=== PATIENT | male | born 1965 | race Caucasian/White ===

== ENCOUNTER 2016-12-11 20:33 | Emergency (ER) | payer OTHER ==
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
[2016-12-11 20:45] VITALS: BP 103/71; PULSE 84; RESP 20; TEMP 98.8; O2SAT 95
[2016-12-11] MEDS ORDERED: chlordiazePOXIDE 25 MG CAP PO ONE (20:45)
[2016-12-11] MEDS ORDERED: SODIUM CHLOR 0.9% 1000 ML INJ 1,000 ML IV ONE (20:45)
[2016-12-11] MEDS ORDERED: THIAMINE INJ 100 MG in SODIUM CHLORIDE 0.9% INJ 100 ML IV ONE (20:45)
[2016-12-11 21:57] LABS: AUTOMATED NEUTROPHIL # 5.8 TH/MM3 (1.8-7.7); BASOPHIL # 0.1 TH/MM3 (0-0.2); BASOPHIL % 0.9 % (0.0-2.0); EOSINOPHIL # 0.1 TH/MM3 (0-0.4); EOSINOPHIL % 0.8 % (0.0-4.0); HEMATOCRIT 41.4 % (39.0-51.0); HEMO FLAGS DIFF FINAL; LYMPH % 27.2 % (9.0-44.0); LYMPHOCYTE # 2.6 TH/MM3 (1.0-4.8); MEAN CELL VOLUME 90.8 FL (80.0-100.0); MEAN CORPUSCULAR HEMOGLOBIN 30.8 PG (27.0-34.0); MONO % 11.2 % (0.0-8.0); NEUT % 59.9 % (16.0-70.0); PLATELET COUNT 255 TH/MM3 (150-450); RED BLOOD COUNT 4.56 MIL/MM3 (4.50-5.90); RED CELL DISTRIBUTION WIDTH 14.6 % (11.6-17.2); WHITE BLOOD COUNT 9.6 TH/MM3 (4.0-11.0)
[2016-12-11 22:23] LABS: AMPHETAMINE, URINE NEG (NEG); BARBITURATES, URINE NEG (NEG); COCAINE, URINE NEG (NEG)
[2016-12-11 22:26] LABS: ANION GAP 11 MEQ/L (5-15)
[2016-12-11 22:29] LABS: ALKALINE PHOSPHATASE 93 U/L (45-117); ALT (GPT) 45 U/L (12-78); AST (GOT) 32 U/L (15-37); BICARBONATE 27.3 MEQ/L (21.0-32.0); BLOOD UREA NITROGEN 4 MG/DL (7-18); CHLORIDE 101 MEQ/L (98-107); GLOMERULAR FILTRATION RATE 109 ML/MIN (>89); POTASSIUM 3.6 MEQ/L (3.5-5.1); SODIUM (NA) 139 MEQ/L (136-145); TOTAL BILIRUBIN ADULT 0.1 MG/DL (0.2-1.0)
[2016-12-12 06:05] VITALS: BP 115/88
== END 2016-12-12 06:13 | disposition home or self-care (01) ==
LOC: NEPE 20:33
DX: F10.129 Alcohol abuse with intoxication, unspecified (principal); Y90.6 Blood alcohol level of 120-199 mg/100 ml; S60.511A Abrasion of right hand, initial encounter; Y04.0XXA Assault by unarmed brawl or fight, initial encounter
CPT/HCPCS: 80053; 80307; 85025; 96365; 99284; J3411; J7030

== ENCOUNTER 2016-12-16 20:16 | Inpatient (IN) | payer SELFPAY ==
[~2016-12-16] VITALS: Ht 177.8 cm; Wt 66.5 kg
[2016-12-16] MEDS ORDERED: SODIUM CHLOR 0.9% 1000 ML INJ 1,000 ML IV SCH (20:24)
[2016-12-16] MEDS ORDERED: SODIUM CHLORIDE 0.9% FLUSH 10 ML FLUSH IVF PRN (20:30)
--- NOTE | 2016-12-16 20:33 | PD ---
HPI Chief Complaint: altered mental status/[place] act. Time Seen by Provider: 20:27 Travel History International Travel<30 days: No Contact w/Intl Traveler<30days: No Traveled to known affect area: No History of Present Illness HPI Clarence Dawson brought in by EMS with altered mental status and obvious intoxication [place] act. Patient has been unresponsive, with O2 sats in the 80s without O2 supplementation. Patient is visibly intoxicated without obvious signs of trauma. He has audible rhonchi with inspiration and expiration. Patient simply mumbles but is arousable but unintelligible. PFSH Past Medical History Medical History: Unable to Obtain Social History Alcohol Use: Yes Tobacco Use: Yes Substance Use: Yes Allergies-Medications (Allergen,Severity, Reaction): Coded Allergies: Tetanus Toxoid (Verified Allergy, Severe, Anaphylaxis, 12/17/16) Reported Meds & Prescriptions Reported Meds & Active Scripts Active Active Prescriptions or Reported Medications Unobtainable Review of Systems ROS Limitations: Altered Mental Status Except as stated in HPI: all other systems reviewed are Neg General / Constitutional: No: Fever Eyes: No: Visual changes HENT: No: Headaches Cardiovascular: No: Chest Pain or Discomfort Respiratory: No: Shortness of Breath Gastrointestinal: No: Abdominal Pain Genitourinary: No: Dysuria Musculoskeletal: No: Pain Skin: No Rash Neurologic: No: Weakness Psychiatric: No: Depression Endocrine: No: Polydipsia Hematologic/Lymphatic: No: Easy Bruising Physical Exam Exam Limitations: Altered Mental Status Narrative GENERAL: Patient appears obtunded and intoxicated. Respiratory rate is proximal to respiratory. SKIN: Warm and dry. Normal color. Poor turgor with tenting present. HEAD: Normocephalic. No obvious signs of trauma. EYES: Pupils equal and round. No scleral icterus. No injection or drainage. ENT: No nasal bleeding or discharge. Mucous membranes pink and moist. Pharynx is clear. Airway is patent. There is vomitus noted in the patient's ramirez and mustache. NECK: Trachea midline. No JVD. No bony tenderness or step-off. Supple without obvious tenderness. CARDIOVASCULAR: Regular rate and rhythm. No murmurs gallops or rubs. RESPIRATORY: No accessory muscle use. Diffuse wheezes and rhonchi throughout to auscultation. Breath sounds equal bilaterally. GASTROINTESTINAL: Abdomen soft, non-tender, nondistended. Hepatic and splenic margins not palpable. MUSCULOSKELETAL: Extremities without clubbing, cyanosis, or edema. No obvious deformities. NEUROLOGICAL: Awake and alert. No obvious cranial nerve deficits. Motor grossly within normal limits. Patient only mumbles. PSYCHIATRIC: Unable to assess. Data Data Last Documented VS Vital Signs Date Time Temp Pulse Resp B/P Pulse Ox O2 Delivery O2 Flow Rate FiO2 12/16/16 21:35 82 18 118/75 98 Aerosol Mask 12/16/16 20:59 4 12/16/16 20:55 97.7 Orders Electrocardiogram (12/16/16 20:24) Ammonia (12/16/16 20:24) Complete Blood Count With Diff (12/16/16 20:24) Comprehensive Metabolic Panel (12/16/16 20:24) Creatine Kinase (Cpk) (12/16/16 20:24) Prothrombin Time / Inr (Pt) (12/16/16 20:24) Act Partial Throm Time (Ptt) (12/16/16 20:24) Lactic Acid Sepsis Protocol (12/16/16 20:24) Urinalysis - C+S If Indicated (12/16/16 20:24) Blood Culture (12/16/16 20:24) Chest, Single Ap (12/16/16 20:24) Blood Glucose (12/16/16 20:24) Ecg Monitoring (12/16/16 20:24) Iv Access Insert/Monitor (12/16/16 20:24) Cath For Specimen (12/16/16 20:24) Oximetry (12/16/16 20:24) Sodium Chloride 0.9% Flush (Ns Flush) (12/16/16 20:30) Sodium Chlor 0.9% 1000 Ml Inj (Ns 1000 M (12/16/16 20:24) Drug Screen, Random Urine (12/16/16 20:24) Alcohol (Ethanol) (12/16/16 20:24) Albuterol-Ipratropium Neb (Duoneb Neb) (12/16/16 21:00) Vancomycin Inj (Vancomycin Inj) (12/16/16 21:16) Piperacil-Tazo 4.5 Gm Premix (Zosyn 4.5 (12/16/16 21:16) Sodium Chlor 0.9% 1000 Ml Inj (Ns 1000 M (12/16/16 21:16) Sodium Chlor 0.9% 1000 Ml Inj (Ns 1000 M (12/16/16 21:16) Ct Brain W/O Iv Contrast(Rout) (12/16/16 22:15) Admit Order (Ed Use Only) (12/16/16 22:26) Labs Laboratory Tests Test 12/16/16 12/16/16 20:30 20:50 White Blood Count 9.2 TH/MM3 Red Blood Count 4.75 MIL/MM3 Hemoglobin 15.2 GM/DL Hematocrit 43.3 % Mean Corpuscular Volume 91.2 FL Mean Corpuscular Hemoglobin 32.1 PG Mean Corpuscular Hemoglobin 35.2 % Concent Red Cell Distribution Width 15.2 % Platelet Count 297 TH/MM3 Mean Platelet Volume 7.1 FL Neutrophils (%) (Auto) 63.5 % Lymphocytes (%) (Auto) 26.7 % Monocytes (%) (Auto) 7.7 % Eosinophils (%) (Auto) 0.7 % Basophils (%) (Auto) 1.4 % Neutrophils # (Auto) 5.9 TH/MM3 Lymphocytes # (Auto) 2.5 TH/MM3 Monocytes # (Auto) 0.7 TH/MM3 Eosinophils # (Auto) 0.1 TH/MM3 Basophils # (Auto) 0.1 TH/MM3 CBC Comment DIFF FINAL Differential Comment Prothrombin Time 10.3 SEC Prothromb Time International 0.9 RATIO Ratio Activated Partial 25.0 SEC Thromboplast Time Sodium Level 142 MEQ/L Potassium Level 3.4 MEQ/L Chloride Level 107 MEQ/L Carbon Dioxide Level 23.4 MEQ/L Anion Gap 12 MEQ/L Blood Urea Nitrogen 5 MG/DL Creatinine 1.03 MG/DL Estimat Glomerular Filtration 62 ML/MIN Rate Random Glucose 144 MG/DL Lactic Acid Level 5.3 mmol/L Calcium Level 8.1 MG/DL Total Bilirubin 0.1 MG/DL Aspartate Amino Transf 51 U/L (AST/SGOT) Alanine Aminotransferase 54 U/L (ALT/SGPT) Alkaline Phosphatase 100 U/L Ammonia 37 MCMOL/L Total Creatine Kinase 116 U/L Total Protein 6.8 GM/DL Albumin 3.0 GM/DL Ethyl Alcohol Level 540 MG/DL Urine Color LIGHT-YELLOW Urine Turbidity CLEAR Urine pH 5.0 Urine Specific [place] 1.003 Urine Protein NEG mg/dL Urine Glucose (UA) NEG mg/dL Urine Ketones NEG mg/dL Urine Occult Blood NEG Urine Nitrite NEG Urine Bilirubin NEG Urine Urobilinogen LESS THAN 2.0 MG/DL Urine Leukocyte Esterase NEG Urine RBC LESS THAN 1 /hpf Urine WBC LESS THAN 1 /hpf Urine Squamous Epithelial 1 /hpf Cells Microscopic Urinalysis Comment CATH-CULT NOT IND Urine Opiates Screen NEG Urine Barbiturates Screen NEG Urine Amphetamines Screen NEG Urine Benzodiazepines Screen NEG Urine Cocaine Screen NEG Urine Cannabinoids Screen NEG MDM Medical Decision Making Medical Screen Exam Complete: Yes Emergency Medical Condition: Yes Differential Diagnosis [place]man act. Sepsis. Pneumonia. Hypoxia. Intoxication. Narrative Course Patient is medically stable with 5 L nasal cannula oxygen. IV access is obtained patient's labs are obtained including CBC, CMP, lactic acid, blood cultures 2, urinalysis, urine drug screen, serum ammonia level, and serum EtOH. Patient is given 1 L normal saline bolus 3. Chest x-ray and CT scan of the head is ordered. EKG shows atrial flutter/tachycardia without significant ST-T changes. This is reviewed with Dr. Lucia. Chest x-ray shows no acute process per radiologist. Lactic acid is critically elevated at 5.3. Patient is given 4.5 g Zosyn IV as well as 1000 mg vancomycin IV. CMP shows potassium 3.4, BUN 5, and a 1.03, calcium 8.1, total bilirubin is 0.1 , ammonia level is 37, albumin is 3.0. Serum alcohol level is 540 at 2030 hrs. Coagulation studies are normal. Patient is discussed with Dr. Lucia who also sees the patient. CT scan Patient is felt to need admission due to his lactic acid level. Call was placed to the hospitalist and patient was discussed and admission agreed upon. Diagnosis Primary Impression: Elevated lactic acid level Additional Impressions: Elevated ETOH level Qualified Code: Y90.8 - Blood alcohol level of 240 mg/100 ml or more Hypoxia Aspiration into respiratory tract Qualified Code: T17.908A - Aspiration into respiratory tract, initial encounter Admitting Information Admitting Physician Requests: Admit Scripts Unable to Obtain Active Prescriptions or Reported Meds Condition: Brenden Worley Dec 16, 2016 20:33
[2016-12-16 20:45] LABS: AUTOMATED NEUTROPHIL # 5.9 TH/MM3 (1.8-7.7); BASOPHIL # 0.1 TH/MM3 (0-0.2); BASOPHIL % 1.4 % (0.0-2.0); EOSINOPHIL # 0.1 TH/MM3 (0-0.4); EOSINOPHIL % 0.7 % (0.0-4.0); HEMATOCRIT 43.3 % (39.0-51.0); HEMO FLAGS DIFF FINAL; LYMPH % 26.7 % (9.0-44.0); LYMPHOCYTE # 2.5 TH/MM3 (1.0-4.8); MEAN CELL VOLUME 91.2 FL (80.0-100.0); MEAN CORPUSCULAR HEMOGLOBIN 32.1 PG (27.0-34.0); MEAN CORPUSCULAR HGB CONC 35.2 % (32.0-36.0); MONO % 7.7 % (0.0-8.0); NEUT % 63.5 % (16.0-70.0); PLATELET COUNT 297 TH/MM3 (150-450); RED BLOOD COUNT 4.75 MIL/MM3 (4.50-5.90); RED CELL DISTRIBUTION WIDTH 15.2 % (11.6-17.2); WHITE BLOOD COUNT 9.2 TH/MM3 (4.0-11.0)
[2016-12-16 20:55] VITALS: BP 118/75; PULSE 110; RESP 16; TEMP 97.7; O2SAT 88
[2016-12-16 20:59] LABS: INTERNATIONAL NORMALIZED RATIO 0.9 RATIO; PROTHROMBIN TIME - PATIENT 10.3 SEC (9.8-11.6)
[2016-12-16 21:05] LABS: ANION GAP 12 MEQ/L (5-15); AST (GOT) 51 U/L (15-37); BICARBONATE 23.4 MEQ/L (21.0-32.0); BLOOD UREA NITROGEN 5 MG/DL (7-18); CHLORIDE 107 MEQ/L (98-107); GLOMERULAR FILTRATION RATE 62 ML/MIN (>89); POTASSIUM 3.4 MEQ/L (3.5-5.1); SODIUM (NA) 142 MEQ/L (136-145)
--- NOTE | 2016-12-16 21:12 | RADRPT ---
EXAM DATE/TIME: 12/16/2016 20:27 [facility] COMPARISON: No previous studies available for comparison. INDICATIONS : Cough. MEDICAL HISTORY : None. SURGICAL HISTORY : None. ENCOUNTER: Initial ACUITY: 1 day PAIN SCORE: 0/10 LOCATION: Bilateral chest FINDINGS: A single view of the chest demonstrates the lungs to be symmetrically aerated without evidence of mas s, infiltrate or effusion. The cardiomediastinal contours are unremarkable. Osseous structures are intact. CONCLUSION: No acute disease. Deniz Pearson MD on December 16, 2016 at 21:09 Board Certified Radiologist. This report was verified electronically.
[2016-12-16 21:13] LABS: ALKALINE PHOSPHATASE 100 U/L (45-117)
[2016-12-16 21:14] LABS: ALT (GPT) 54 U/L (12-78); CREATINE KINASE 116 U/L (39-308); TOTAL BILIRUBIN ADULT 0.1 MG/DL (0.2-1.0)
[2016-12-16] MEDS ORDERED: SODIUM CHLOR 0.9% 1000 ML INJ 1,000 ML IV ONE (21:16)
[2016-12-16] MEDS ORDERED: SODIUM CHLOR 0.9% 1000 ML INJ 100 ML IV ONE (21:16)
[2016-12-16] MEDS ORDERED: PIPERACIL-TAZO 4.5 GM PREMIX 100 ML IV STA (21:16)
[2016-12-16] MEDS ORDERED: VANCOMYCIN INJ 1,000 MG in SODIUM CHLOR 0.9% 250 ML INJ 250 ML IV STA (21:16)
[2016-12-16 21:29] VITALS: O2SAT 92
[2016-12-16] MEDS: RESP: ALBUTEROL 2.5 MG/IPRATROPIUM 0.5 MG NEB (SCH) INH ×2 (21:29→21:30)
[2016-12-16 21:35] VITALS: BP 118/75; PULSE 82; RESP 18; O2SAT 98
--- NOTE | 2016-12-16 22:05 | PD ---
Data Data Last Documented VS Vital Signs Date Time Temp Pulse Resp B/P Pulse Ox O2 Delivery O2 Flow Rate FiO2 12/16/16 21:35 82 18 118/75 98 Aerosol Mask 12/16/16 20:59 4 12/16/16 20:55 97.7 Orders Electrocardiogram (12/16/16 20:24) Ammonia (12/16/16 20:24) Complete Blood Count With Diff (12/16/16 20:24) Comprehensive Metabolic Panel (12/16/16 20:24) Creatine Kinase (Cpk) (12/16/16 20:24) Prothrombin Time / Inr (Pt) (12/16/16 20:24) Act Partial Throm Time (Ptt) (12/16/16 20:24) Lactic Acid Sepsis Protocol (12/16/16 20:24) Urinalysis - C+S If Indicated (12/16/16 20:24) Blood Culture (12/16/16 20:24) Chest, Single Ap (12/16/16 20:24) Blood Glucose (12/16/16 20:24) Ecg Monitoring (12/16/16 20:24) Iv Access Insert/Monitor (12/16/16 20:24) Cath For Specimen (12/16/16 20:24) Oximetry (12/16/16 20:24) Sodium Chloride 0.9% Flush (Ns Flush) (12/16/16 20:30) Sodium Chlor 0.9% 1000 Ml Inj (Ns 1000 M (12/16/16 20:24) Drug Screen, Random Urine (12/16/16 20:24) Alcohol (Ethanol) (12/16/16 20:24) Albuterol-Ipratropium Neb (Duoneb Neb) (12/16/16 21:00) Vancomycin Inj (Vancomycin Inj) (12/16/16 21:16) Piperacil-Tazo 4.5 Gm Premix (Zosyn 4.5 (12/16/16 21:16) Sodium Chlor 0.9% 1000 Ml Inj (Ns 1000 M (12/16/16 21:16) Sodium Chlor 0.9% 1000 Ml Inj (Ns 1000 M (12/16/16 21:16) Labs Laboratory Tests Test 12/16/16 20:30 White Blood Count 9.2 TH/MM3 Red Blood Count 4.75 MIL/MM3 Hemoglobin 15.2 GM/DL Hematocrit 43.3 % Mean Corpuscular Volume 91.2 FL Mean Corpuscular Hemoglobin 32.1 PG Mean Corpuscular Hemoglobin 35.2 % Concent Red Cell Distribution Width 15.2 % Platelet Count 297 TH/MM3 Mean Platelet Volume 7.1 FL Neutrophils (%) (Auto) 63.5 % Lymphocytes (%) (Auto) 26.7 % Monocytes (%) (Auto) 7.7 % Eosinophils (%) (Auto) 0.7 % Basophils (%) (Auto) 1.4 % Neutrophils # (Auto) 5.9 TH/MM3 Lymphocytes # (Auto) 2.5 TH/MM3 Monocytes # (Auto) 0.7 TH/MM3 Eosinophils # (Auto) 0.1 TH/MM3 Basophils # (Auto) 0.1 TH/MM3 CBC Comment DIFF FINAL Differential Comment Prothrombin Time 10.3 SEC Prothromb Time International 0.9 RATIO Ratio Activated Partial 25.0 SEC Thromboplast Time Sodium Level 142 MEQ/L Potassium Level 3.4 MEQ/L Chloride Level 107 MEQ/L Carbon Dioxide Level 23.4 MEQ/L Anion Gap 12 MEQ/L Blood Urea Nitrogen 5 MG/DL Creatinine 1.03 MG/DL Estimat Glomerular Filtration 62 ML/MIN Rate Random Glucose 144 MG/DL Lactic Acid Level 5.3 mmol/L Calcium Level 8.1 MG/DL Total Bilirubin 0.1 MG/DL Aspartate Amino Transf 51 U/L (AST/SGOT) Alanine Aminotransferase 54 U/L (ALT/SGPT) Alkaline Phosphatase 100 U/L Ammonia 37 MCMOL/L Total Creatine Kinase 116 U/L Total Protein 6.8 GM/DL Albumin 3.0 GM/DL Ethyl Alcohol Level 540 MG/DL [facility] Medical Record Reviewed: Yes Supervised Visit with AYANA: Yes Narrative Course I, Dr. Lucia, have reviewed the advance practice practitioner's documentation and am in agreement, met with the patient face to face, made the diagnosis, and the medical decision making was done by me. The patient was initially seen by Brenden, the physician assistant account manager. Please see his complete history and physical. *My assessment and Findings: The patient is a 48 something appearing male who presents to [facility] emergency Department with a history of being found with altered mentation. The patient reportedly had dried emesis on his mouth. The patient had scattered rhonchi noted on auscultation of his lung marie. The patient was noted to be hypoxemic on room air. The patient was placed on supplemental oxygen. On my arrival to the room the patient is easily arousable although clearly intoxicated with slurred speech. The patient reports that he does smoke a pack of cigarettes per day. He also reports that he drinks to 4 packs of beer per day. The patient was started on nebulizer treatments. The patient's lactic acid was noted to be elevated. The patient was started on IV antibiotic to cover for aspiration and respiratory organisms. The patient will be admitted to the hospital for continued evaluation and treatment. Diagnosis Primary Impression: Altered mental status Qualified Code: R41.0 - Disorientation Additional Impressions: Hypoxemia Alcohol intoxication Qualified Code: F10.129 - Alcohol intoxication, with unspecified complication Admitting Information Admitting Physician Requests: Admit Giselle Lucia MD Dec 16, 2016 22:05
[2016-12-16 22:17] LABS: BLOOD, URINE NEG (NEG); COMMENT (UR) CATH-CULT NOT IND; CULTURE IF INDICATED CATH CULTURE NOT IND; GLUCOSE,URINE NEG (NEG); KETONE, URINE NEG (NEG); NITRITE,URINE NEG (NEG); SQUAMOUS EPITHELIAL CELL URINE 1 /hpf (0-5); URINE COLOR LIGHT-YELLOW (YELLW/STRAW)
[2016-12-16 22:23] LABS: AMPHETAMINE, URINE NEG (NEG); BARBITURATES, URINE NEG (NEG); COCAINE, URINE NEG (NEG)
[2016-12-16 22:30] VITALS: BP 113/81; PULSE 110; RESP 18; O2SAT 96
--- NOTE | 2016-12-16 22:30 | RADRPT ---
EXAM DATE/TIME: 12/16/2016 22:17 [facility] COMPARISON: No previous studies available for comparison. INDICATIONS : Altered mental status. RADIATION DOSE: 38.39 CTDIvol (mGy) MEDICAL HISTORY : Non-responsive. SURGICAL HISTORY : Non-responsive. ENCOUNTER: Initial ACUITY: 1 day PAIN SCALE: Non-responsive LOCATION: cranial TECHNIQUE: Multiple contiguous axial images were obtained of the head. Using automated exposure control and adj ustment of the mA and/or kV according to patient size, radiation dose was kept as low as reasonably a chievable to obtain optimal diagnostic quality images. FINDINGS: CEREBRUM: The ventricles are normal for age. No evidence of midline shift, mass lesion, hemorrhage or acute in farction. No extra-axial fluid collections are seen. POSTERIOR FOSSA: The cerebellum and brainstem are intact. The 4th ventricle is midline. The cerebellopontine angle i s unremarkable. EXTRACRANIAL: The visualized portion of the orbits is intact. SKULL: The calvaria is intact. No evidence of skull fracture. CONCLUSION: Normal examination. Deniz Pearson MD on December 16, 2016 at 22:27 Board Certified Radiologist. This report was verified electronically.
[2016-12-16 22:38] LABS: LACTIC ACID GHOST NOT REPORTABLE
[2016-12-16] MEDS ORDERED: ONDANSETRON HCL 4 MG/2 ML VIAL IVP PRN (22:45)
[2016-12-16] MEDS ORDERED: NALOXONE HCL 0.4 MG/ML AMP IV PRN (22:45)
[2016-12-16] MEDS ORDERED: cloNIDine HCL 0.1 MG TAB PO PRN (22:45)
[2016-12-16] MEDS ORDERED: LORazepam 1 MG TAB PO PRN (22:45)
[2016-12-16] MEDS ORDERED: LORazepam 2 MG TAB PO PRN (22:45)
[2016-12-16] MEDS ORDERED: FLUMAZENIL 0.5 MG/5 ML VIAL IV PUSH PRN (22:45)
[2016-12-16] MEDS ORDERED: POTASSIUM CHLOR 20 MEQ PREMIX 100 ML IV ONE (22:45)
[2016-12-16] MEDS ORDERED: LORazepam 2 MG/ML VIAL IV PUSH PRN ×4 (22:45)
[2016-12-16] MEDS ORDERED: SODIUM CHLORIDE 0.9% FLUSH 10 ML FLUSH IV FLUSH PRN (22:45)
--- NOTE | 2016-12-16 22:53 | HHI.HP ---
H[facility] Phys[facility] Unknown Admission Diagnosis Elevated Lactic acid/ETOH Diagnoses: Chief Complaint: ETOH intoxication Travel History International Travel<30 Days: No Contact w/Intl Traveler <30 Da: No Traveled to Known Affected Are: No History of Present Illness Clarence Dawson brought in by EMS with altered mental status and obvious intoxication Marchman act. On presentation Per ER documentation.Patient has been unresponsive, with O2 sats in the 80s without O2 supplementation. Patient is visibly intoxicated without obvious signs of trauma. He has audible rhonchi with inspiration and expiration. Patient simply mumbles but is arousable but unintelligible. At time of our evaluation Patient continues to appear intoxicated unable to provide meaningful information. Patient able to tell us he in in the hospital but unable to provide his name day, moth or year. Does not appear to be in any acute distress. Review of Systems ROS Limitations: Intoxication Past Family Social History Past Medical History Unable to obtain due to intoxication/clinical condition Past Surgical History Unable to obtain due to intoxication/clinical condition Reported Medications Unable to obtain due to intoxication/clinical condition Allergies: Coded Allergies: Tetanus Toxoid (Verified Allergy, Severe, Anaphylaxis, 12/17/16) Active Ordered Medications Current Medications Medications (Trade) Dose Ordered Sig/Viv Route Start Time Stop Time Status Last Admin (NS Flush) 2 ml UNSCH PRN IVF 12/16/16 20:30 (NS Flush) 2 ml UNSCH PRN IV FLUSH 12/16/16 22:45 (NS Flush) 2 ml BID IV FLUSH 12/17/16 09:00 (Zofran Inj) 4 mg Q6H PRN IVP 12/16/16 22:45 Naloxone HCl 0.4 mg 0.4 mg UNSCH PRN IV 12/16/16 22:45 Potassium Chloride 100 ml @ 50 mls/hr ONCE ONCE IV 12/16/16 22:45 12/17/16 00:44 Multivitamins 10 ml/Folic Acid 1 mg/Sodium Chloride 510.2 ml @ 125 mls/hr Q24H IV 12/17/16 00:00 12/21/16 00:00 (Thiamine Inj/NS Inj) 101 ml @ 100 mls/hr Q24H IV 12/17/16 00:00 12/19/16 00:00 (Protonix) 40 mg DAILY PO 12/17/16 09:00 (Catapres) 0.1 mg Q6H PRN PO 12/16/16 22:45 (Romazicon Inj) 0.2 mg Q1M PRN IV PUSH 12/16/16 22:45 (Ativan) 1 mg Q4H PRN PO 12/16/16 22:45 (Ativan Inj) 1 mg Q4H PRN IV PUSH 12/16/16 22:45 (Ativan) 2 mg Q2H PRN PO 12/16/16 22:45 (Ativan Inj) 2 mg Q2H PRN IV PUSH 12/16/16 22:45 (Ativan Inj) 2 mg Q1H PRN IV PUSH 12/16/16 22:45 (Ativan Inj) 2 mg Q15M PRN IV PUSH 12/16/16 22:45 Family History Unable to obtain due to intoxication/clinical condition Social History Unable to obtain due to intoxication/clinical condition Physical Exam Vital Signs Vital Signs Date Time Temp Pulse Resp B/P Pulse Ox O2 Delivery O2 Flow Rate FiO2 12/16/16 21:35 82 18 118/75 98 Aerosol Mask 12/16/16 20:59 16 93 Nasal Cannula 4 12/16/16 20:55 97.7 110 16 118/75 88 Physical Exam GENERAL: This is a well-nourished, well-developed patient, intoxicated but in no apparent distress. SKIN: flores leathery skin HEAD: Atraumatic. Normocephalic. No temporal or scalp tenderness. EYES: Extraocular motions intact. No scleral icterus. No injection or drainage. CARDIOVASCULAR: Regular rate and rhythm without murmurs, gallops, or rubs. RESPIRATORY: diffuse rhonchi. GASTROINTESTINAL: Abdomen soft, non-tender, nondistended. No guarding. MUSCULOSKELETAL: Extremities without clubbing, cyanosis, or edema. No joint tenderness, effusion, or edema noted. No calf tenderness. Negative Homans sign bilaterally. NEUROLOGICAL: able to awake to voice. 4 out of 5 muscle strength in all muscle groups. Laboratory Laboratory Tests Test 12/16/16 12/16/16 20:30 20:50 White Blood Count 9.2 Red Blood Count 4.75 Hemoglobin 15.2 Hematocrit 43.3 Mean Corpuscular Volume 91.2 Mean Corpuscular Hemoglobin 32.1 Mean Corpuscular Hemoglobin 35.2 Concent Red Cell Distribution Width 15.2 Platelet Count 297 Mean Platelet Volume 7.1 Neutrophils (%) (Auto) 63.5 Lymphocytes (%) (Auto) 26.7 Monocytes (%) (Auto) 7.7 Eosinophils (%) (Auto) 0.7 Basophils (%) (Auto) 1.4 Neutrophils # (Auto) 5.9 Lymphocytes # (Auto) 2.5 Monocytes # (Auto) 0.7 Eosinophils # (Auto) 0.1 Basophils # (Auto) 0.1 CBC Comment DIFF FINAL Differential Comment Prothrombin Time 10.3 Prothromb Time International 0.9 Ratio Activated Partial 25.0 Thromboplast Time Sodium Level 142 Potassium Level 3.4 Chloride Level 107 Carbon Dioxide Level 23.4 Anion Gap 12 Blood Urea Nitrogen 5 Creatinine 1.03 Estimat Glomerular Filtration 62 Rate Random Glucose 144 Lactic Acid Level 5.3 Calcium Level 8.1 Total Bilirubin 0.1 Aspartate Amino Transf 51 (AST/SGOT) Alanine Aminotransferase 54 (ALT/SGPT) Alkaline Phosphatase 100 Ammonia 37 Total Creatine Kinase 116 Total Protein 6.8 Albumin 3.0 Ethyl Alcohol Level 540 Urine Color LIGHT-YELLOW Urine Turbidity CLEAR Urine pH 5.0 Urine Specific [place] 1.003 Urine Protein NEG Urine Glucose (UA) NEG Urine Ketones NEG Urine Occult Blood NEG Urine Nitrite NEG Urine Bilirubin NEG Urine Urobilinogen LESS THAN 2.0 Urine Leukocyte Esterase NEG Urine RBC LESS THAN 1 Urine WBC LESS THAN 1 Urine Squamous Epithelial 1 Cells Microscopic Urinalysis Comment CATH-CULT NOT IND Urine Opiates Screen NEG Urine Barbiturates Screen NEG Urine Amphetamines Screen NEG Urine Benzodiazepines Screen NEG Urine Cocaine Screen NEG Urine Cannabinoids Screen NEG Date/Time Procedure Status Source Growth 12/16/16 20:35 Aerobic Blood Culture Received Blood Peripheral Pending 12/16/16 20:35 Anaerobic Blood Culture Received Blood Peripheral Pending Result Diagram: 12/16/16202912/16/162029 Imaging Last Impressions Head CT 12/16/162214 Signed Impressions: Service Date/Time: Friday, December 16, 2016 22:17 - CONCLUSION: Normal examination. Deniz Pearson MD Chest X-Ray 12/16/162023 Signed Impressions: Service Date/Time: Friday, December 16, 2016 20:27 - CONCLUSION: No acute disease. Deniz Pearson MD Assessment and Plan Assessment and Plan Clarence Dawson brought in by EMS with altered mental status and obvious intoxication act. On presentation Per ER documentation. Patient has been unresponsive, with O2 sats in the 80s without O2 supplementation on presentation. Respiratory status improved but he patient is still visibly intoxicated without obvious signs of trauma. He has audible rhonchi with inspiration and expiration. Patient simply mumbles, arousable but unintelligible. Lactic acidosis- likely secondary to dehydration/EtOH intoxication IV hydration Hypoxia Supplement oxygen to maintain saturation above 92% Duo nebs as needed Possible aspiration pneumonia Patient received Zosyn and vancomycin and emergency department for suspected aspiration pneumonia- continue to monitor off antibiotics Reassessment a.m. Elevated ammonia level Start lactulose Recheck in a.m. Hypokalemia Replaced, recheck in AM EtOH abuse/intoxication IV hydration, rally pack CIWA protocol DVT prophylaxis with SCDs Discussed with ER provider, nursing inpatient Written by Mona Martin, acting as scribe for Dr. Odom on 12/16/16 at 23:43. This note was transcribed by scribe [Mona Martin]. I, Dr. Cherry Odom personally performed the history, physical exam, and medical decision making; and confirmed the accuracy of the information in the transcribed note. Authenticated by Dr. Cherry Odom on 12/16/16 at 3944. Physician Certification 2 Midnight Certification Type: Admission for Inpatient Services Order for Inpatient Services The services are ordered in accordance with Medicare regulations or non- Medicare payer requirements, as applicable. In the case of services not specified as inpatient-only, they are appropriately provided as inpatient services in accordance with the 2-midnight benchmark. Estimated LOS (days): 2 days is the estimated time the patient will need to remain in the hospital, assuming treatment plan goals are met and no additional complications. Post-Hospital Plan: Not yet determined Mona Martin Dec 16, 2016 22:53 Cherry Odom MD Dec 17, 2016 00:59
[2016-12-16 23:30] VITALS: BP 121/82; PULSE 108; RESP 18; O2SAT 97
[2016-12-16] MEDS ORDERED: RESP: ALBUTEROL 2.5 MG/IPRATROPIUM 0.5 MG NEB (PRN) NEB (23:45)
[2016-12-17] VITALS (10 sets, daily range): BP systolic 104–130; BP diastolic 55–81; PULSE 62–106; RESP 18–20; TEMP 97.7–98.7; O2SAT 91–97
[2016-12-17] MEDS: MULTIVITAMIN INJ 10 ML, FOLIC ACID INJ 1 MG in SODIUM CHLORID 0.9% 500 ML INJ 500 ML IV SCH (01:39)
[2016-12-17] MEDS: THIAMINE INJ 100 MG in SODIUM CHLORIDE 0.9% INJ 100 ML IV SCH (01:40)
[2016-12-17 05:42] LABS: AUTOMATED NEUTROPHIL # 10.7 TH/MM3 (1.8-7.7); BASOPHIL # 0.1 TH/MM3 (0-0.2); BASOPHIL % 0.6 % (0.0-2.0); EOSINOPHIL % 0.3 % (0.0-4.0); HEMATOCRIT 38.4 % (39.0-51.0); HEMO FLAGS DIFF FINAL; LYMPH % 12.3 % (9.0-44.0); LYMPHOCYTE # 1.6 TH/MM3 (1.0-4.8); MEAN CELL VOLUME 91.7 FL (80.0-100.0); MEAN CORPUSCULAR HEMOGLOBIN 31.2 PG (27.0-34.0); MEAN CORPUSCULAR HGB CONC 34.1 % (32.0-36.0); MONO % 5.5 % (0.0-8.0); NEUT % 81.3 % (16.0-70.0); PLATELET COUNT 236 TH/MM3 (150-450); RED BLOOD COUNT 4.18 MIL/MM3 (4.50-5.90); RED CELL DISTRIBUTION WIDTH 15.2 % (11.6-17.2); WHITE BLOOD COUNT 13.1 TH/MM3 (4.0-11.0)
[2016-12-17 06:03] LABS: BICARBONATE 24.3 MEQ/L (21.0-32.0); MAGNESIUM 1.6 MG/DL (1.5-2.5); POTASSIUM 3.8 MEQ/L (3.5-5.1)
[2016-12-17] MEDS: SODIUM CHLOR 0.9% 1000 ML INJ 1,000 ML IV SCH ×2 (06:49→20:59)
[2016-12-17] MEDS: PIPERACIL-TAZO 3.375 GM PREMIX 50 ML IV SCH ×3 (06:50→17:44)
[2016-12-17] MEDS: SODIUM CHLORIDE 0.9% FLUSH 10 ML FLUSH IV FLUSH SCH ×2 (09:00→21:00)
[2016-12-17] MEDS: LACTULOSE SYRUP 20 GM/30 ML CUP PO SCH ×4 (09:01→21:01)
[2016-12-17] MEDS: PANTOPRAZOLE SOD 40 MG DELAYED RELEASE TAB PO SCH (09:01)
--- NOTE | 2016-12-17 11:41 | EKG ---
Date Performed: 12/16/2016 Time Performed: 20:54:54 PTAGE: 89 years EKG: ATRIAL FLUTTER/TACHYCARDIA ABNORMAL RHYTHM ECG NO PREVIOUS TRACING DOCTOR: Endy Suarez Interpretating Date/Time 02/27/2017 14:11:51
--- NOTE | 2016-12-17 13:55 | HHI.PR ---
Subjective Remarks Follow for alcohol intoxication Patient is very alert today he has no complaints. When asked about his shortness of breathing he stated that that is better. His only complaint is feeling fatigue. Deny nausea or vomiting or pain. Objective Vitals Vital Signs Date Time Temp Pulse Resp B/P Pulse Ox O2 Delivery O2 Flow Rate FiO2 12/17/16 12:00 98.1 94 20 95 12/17/16 08:00 98.2 101 18 105/60 95 12/17/16 04:00 98.3 102 20 105/55 97 12/17/16 01:51 95 12/17/16 00:30 97.7 106 20 104/55 95 12/17/16 00:03 106 18 113/81 96 12/16/16 23:30 108 18 121/82 97 Room Air 12/16/16 22:30 110 18 113/81 96 Room Air 12/16/16 21:35 82 18 118/75 98 Aerosol Mask 12/16/16 21:29 92 12/16/16 20:59 16 93 Nasal Cannula 4 12/16/16 20:55 97.7 110 16 118/75 88 I/O 12/16/16 12/16/16 12/16/16 12/17/16 12/17/16 12/17/16 07:00 15:00 23:00 07:00 15:00 23:00 Intake Total 938 ml Output Total 1400 ml Balance -462 ml Intake Oral 480 ml IV Total 458 ml Output Urine Total 1400 ml # Bowel Movements 0 Result Diagram: 12/17/16 0505 12/17/16 0505 Objective Remarks GENERAL: in NAD CARDIOVASCULAR: Regular rate and rhythm without murmurs, gallops, or rubs. RESPIRATORY: Diffuse wheezing and rhonchi No accessory muscle use. GASTROINTESTINAL: Abdomen soft, non-tender, nondistended. MUSCULOSKELETAL: No cyanosis, or edema. BACK: Nontender without obvious deformity. No CVA tenderness. NEURO: AAO 3. No tremors noted. Medications and IVs Current Medications Sodium Chloride 2 ml 2 ml UNSCH PRN IVF FLUSH AFTER USING IV ACCESS; Start at 20:30 Sodium Chloride (NS 1000 ml Inj) 1,000 ml @ 1,000 mls/hr Q1H IV Last administered on 12/16/16t 20:39; Start 12/16/16 at 20:24; Stop 12/16/16 at 21:23 ; Status DC Albuterol/ Ipratropium 1 ampule 1 ampule Q15M INH Last administered on 21:30; Start 12/16/16 at 21:00; Stop 12/16/16 at 21:31; Status DC Vancomycin HCl 1000 mg/Sodium Chloride 250 ml @ 250 mls/hr ONCE STAT IV Last administered on 12/16/16 22:47; Start 12/16/16 at 21:16; Stop 12/16/16 at 22:15 ; Status DC Piperacillin Sod/ Tazobactam Sod 100 ml @ 200 mls/hr ONCE STAT IV Last administered on 12/16/16 21:33; Start 12/16/16 at 21:16; Stop 12/16/16 at 21:45 ; Status DC Sodium Chloride 1,000 ml @ 1,000 mls/hr Q1H ONCE IV Last administered on 21:32; Start 12/16/16 at 21:16; Stop 12/16/16 at 22:15; Status DC Sodium Chloride (NS 1000 ml Inj) 100 ml @ 1,000 mls/hr Q6M ONCE IV Last administered on 12/16/16 22:12; Start 12/16/16 at 21:16; Stop 12/16/16 at 21:21 ; Status DC Sodium Chloride (NS Flush) 2 ml UNSCH PRN IV FLUSH FLUSH AFTER USING IV ACCESS ; Start 12/16/16 at 22:45 Sodium Chloride (NS Flush) 2 ml BID IV FLUSH ; Start 12/17/16 at 09:00 Ondansetron HCl (Zofran Inj) 4 mg Q6H PRN IVP NAUSEA OR VOMITING; Start at 22:45 Naloxone HCl 0.4 mg 0.4 mg UNSCH PRN IV SEE LABEL COMMENTS; Start 12/16/16 at 22:45 Potassium Chloride 100 ml @ 50 mls/hr ONCE ONCE IV Last administered on 00:15; Start 12/16/16 at 22:45; Stop 12/17/16 at 00:44; Status DC Multivitamins 10 ml/Folic Acid 1 mg/Sodium Chloride 510.2 ml @ 125 mls/hr Q24H IV Last administered on 12/17/16 01:39; Start 12/17/16 at 00:00; Stop at 00:00 Thiamine HCl/ Sodium Chloride (Thiamine Inj/NS Inj) 101 ml @ 100 mls/hr Q24H IV Last administered on 12/17/16 01:40; Start 12/17/16 at 00:00; Stop at 00:00 Pantoprazole Sodium (Protonix) 40 mg DAILY PO Last administered on 12/17/16 09 :01; Start 12/17/16 at 09:00 Clonidine (Catapres) 0.1 mg Q6H PRN PO SEE LABEL COMMENTS; Start 12/16/16 at 22 :45 Flumazenil (Romazicon Inj) 0.2 mg Q1M PRN IV PUSH SEE LABEL COMMENTS; Start at 22:45 Lorazepam (Ativan) 1 mg Q4H PRN PO CIWA 8 - 10; Start 12/16/16 at 22:45 Lorazepam (Ativan Inj) 1 mg Q4H PRN IV PUSH CIWA 8 - 10; Start 12/16/16 at 22: 45 Lorazepam (Ativan) 2 mg Q2H PRN PO CIWA 11-14; Start 12/16/16 at 22:45 Lorazepam (Ativan Inj) 2 mg Q2H PRN IV PUSH CIWA 11-14; Start 12/16/16 at 22:45 Lorazepam (Ativan Inj) 2 mg Q1H PRN IV PUSH CIWA 15-20; Start 12/16/16 at 22:45 Lorazepam (Ativan Inj) 2 mg Q15M PRN IV PUSH CIWA > 20; Start 12/16/16 at 22:45 Albuterol/ Ipratropium (Duoneb Neb) 1 ampule Q4HR NEB PRN NEB SOB/WHEEZING; Start 12/16/16 at 23:45 Lactulose 30 ml 30 ml QID PO Last administered on 12/17/16 12:27; Start at 09:00 Piperacillin Sod/ Tazobactam Sod 50 ml @ 100 mls/hr Q6H IV Last administered on 12/17/16 12:27; Start 12/17/16 at 07:00 Sodium Chloride (NS 1000 ml Inj) 1,000 ml @ 84 mls/hr [id number] IV Last administered on 12/17/16t 06:49; Start 12/17/16 at 06:30 A/P Assessment and Plan Clarence Dawson brought in by EMS with altered mental status and obvious intoxication Marchman act. On presentation Per ER documentation. Patient has been unresponsive, with O2 sats in the 80s without O2 supplementation on presentation. Respiratory status improved but he patient is still visibly intoxicated without obvious signs of trauma. He has audible rhonchi with inspiration and expiration. Patient simply mumbles, arousable but unintelligible. Altered mental status -Due to alcohol intoxication. -Resolved. Lactic acidosis - likely secondary to dehydration/EtOH intoxication -Improved with IV fluids. Respiratory failure with hypoxia -Chest x-ray negative. -May be reactive secondary to aspiration. -Will add Solu-Medrol and scheduled DuoNeb's. -Continue to wean patient off oxygen. -Patient was given a dose of vancomycin and Zosyn. He is being monitored off of antibiotics. We'll continue to monitor. Hypokalemia -Replenish as needed. EtOH abuse/intoxication -IV hydration, rally pack -CIWA protocol -Extensive education given. DVT prophylaxis with SCDs Discharge Planning Patient clinically is doing well but needs to be weaned off of oxygen before he can be discharged to home. Cassidy Guerra MD Dec 17, 2016 13:55
[2016-12-17] MEDS: RESP: ALBUTEROL 2.5 MG/IPRATROPIUM 0.5 MG NEB (SCH) NEB ×2 (16:10→19:53)
[2016-12-17] MEDS: methylPREDNISolone SOD SUCC 125 MG/2 ML VIAL IV PUSH SCH (17:46)
[2016-12-17] MEDS: CALCIUM CARBONATE 500 MG CHEWABLE TAB CHEW SCH (17:46)
[2016-12-18] VITALS: BP 111/60; PULSE 45; RESP 18; TEMP 97.9; O2SAT 94
[2016-12-18] MEDS ORDERED: POTASSIUM CHLORIDE 20 MEQ CONTROLLED RELEASE TAB PO ONE (00:30)
[2016-12-18] MEDS: MULTIVITAMIN INJ 10 ML, FOLIC ACID INJ 1 MG in SODIUM CHLORID 0.9% 500 ML INJ 500 ML IV SCH (00:35)
[2016-12-18] MEDS: PIPERACIL-TAZO 3.375 GM PREMIX 50 ML IV SCH ×3 (00:35→12:28)
[2016-12-18] MEDS: THIAMINE INJ 100 MG in SODIUM CHLORIDE 0.9% INJ 100 ML IV SCH (01:30)
[2016-12-18 02:50] LABS: BICARBONATE 24.8 MEQ/L (21.0-32.0); MAGNESIUM 1.6 MG/DL (1.5-2.5); POTASSIUM 3.9 MEQ/L (3.5-5.1)
[2016-12-18] MEDS ORDERED: MAGNESIUM SULFATE 1 GM PREMIX 100 ML IV ONE (03:00)
[2016-12-18 04:00] VITALS: BP 125/68; PULSE 62; RESP 18; TEMP 97.6; O2SAT 95
[2016-12-18] MEDS: RESP: ALBUTEROL 2.5 MG/IPRATROPIUM 0.5 MG NEB (SCH) NEB ×4 (04:00→11:27)
[2016-12-18] MEDS: SODIUM CHLOR 0.9% 1000 ML INJ 1,000 ML IV SCH (06:05)
[2016-12-18 06:52] LABS: AUTOMATED NEUTROPHIL # 9.5 TH/MM3 (1.8-7.7); BASOPHIL % 0.2 % (0.0-2.0); HEMATOCRIT 37.7 % (39.0-51.0); HEMO FLAGS DIFF FINAL; LYMPH % 4.6 % (9.0-44.0); LYMPHOCYTE # 0.5 TH/MM3 (1.0-4.8); MEAN CELL VOLUME 91.6 FL (80.0-100.0); MEAN CORPUSCULAR HEMOGLOBIN 31.7 PG (27.0-34.0); MEAN CORPUSCULAR HGB CONC 34.6 % (32.0-36.0); MONO % 2.7 % (0.0-8.0); NEUT % 92.5 % (16.0-70.0); PLATELET COUNT 190 TH/MM3 (150-450); RED BLOOD COUNT 4.12 MIL/MM3 (4.50-5.90); RED CELL DISTRIBUTION WIDTH 15.6 % (11.6-17.2); WHITE BLOOD COUNT 10.2 TH/MM3 (4.0-11.0)
[2016-12-18 07:23] LABS: BICARBONATE 25.1 MEQ/L (21.0-32.0); POTASSIUM 4.5 MEQ/L (3.5-5.1)
[2016-12-18 08:00] VITALS: BP 130/70; PULSE 50; PULSE 62; RESP 18; TEMP 98; O2SAT 97; O2SAT 98
[2016-12-18 08:13] VITALS: O2SAT 98
[2016-12-18] MEDS: LACTULOSE SYRUP 20 GM/30 ML CUP PO SCH ×2 (09:51→12:28)
[2016-12-18] MEDS: SODIUM CHLORIDE 0.9% FLUSH 10 ML FLUSH IV FLUSH SCH (09:52)
[2016-12-18] MEDS: methylPREDNISolone SOD SUCC 125 MG/2 ML VIAL IV PUSH SCH ×2 (09:52→12:28)
[2016-12-18] MEDS: PANTOPRAZOLE SOD 40 MG DELAYED RELEASE TAB PO SCH (09:52)
[2016-12-18] MEDS: CALCIUM CARBONATE 500 MG CHEWABLE TAB CHEW SCH ×2 (09:52→12:28)
[2016-12-18 12:00] VITALS: BP 123/75; PULSE 82; RESP 18; TEMP 98.1; O2SAT 98
[2016-12-18] MEDS ORDERED: PRED50 PO (12:05)
[2016-12-18] MEDS ORDERED: LEVA750T PO (12:05)
[2016-12-18] MEDS ORDERED: CALC500C16 CHEW (12:05)
[2016-12-18] MEDS ORDERED: VENTAER INH (12:05)
--- NOTE | 2016-12-18 12:06 | HHI.DS ---
Discharge Summary Admission Date Dec 16, 2016 at 22:27 Discharge Date: Dec 18, 2016 Admitting Diagnosis Elevated Lactic acid/ETOH (1) Alcohol intoxication ICD Code: F10.129 Diagnosis: Principal (2) Altered mental status ICD Code: R41.82 Diagnosis: Principal (3) Respiratory failure with hypoxia ICD Code: J96.91 Diagnosis: Principal (4) Lactic acid acidosis ICD Code: E87.2 Diagnosis: Principal Procedures none Brief History - From Admission Clarence Dawson brought in by EMS with altered mental status and obvious intoxication Marchman act. On presentation Per ER documentation.Patient has been unresponsive, with O2 sats in the 80s without O2 supplementation. Patient is visibly intoxicated without obvious signs of trauma. He has audible rhonchi with inspiration and expiration. Patient simply mumbles but is arousable but unintelligible. At time of our evaluation Patient continues to appear intoxicated unable to provide meaningful information. Patient able to tell us he in in the hospital but unable to provide his name day, moth or year. Does not appear to be in any acute distress. CBC/BMP: 12/18/16 0616 12/18/16 0616 Significant Findings Laboratory Tests Test 12/16/16 12/16/16 12/17/16 12/18/16 20:30 23:30 05:05 01:15 Potassium Level 3.4 MEQ/L (3.5-5.1) Blood Urea Nitrogen 5 MG/DL (7-18) 6 MG/DL (7-18) Estimat Glomerular Filtration 62 ML/MIN (>89) 74 ML/MIN (>89) Rate Random Glucose 144 MG/DL 127 MG/DL 256 MG/DL (74-106) (74-106) (74-106) Lactic Acid Level 5.3 mmol/L 2.5 mmol/L (0.4-2.0) (0.4-2.0) Calcium Level 8.1 MG/DL 7.1 MG/DL 7.9 MG/DL (8.5-10.1) (8.5-10.1) (8.5-10.1) Total Bilirubin 0.1 MG/DL (0.2-1.0) Aspartate Amino Transf 51 U/L (15-37) (AST/SGOT) Ammonia 37 MCMOL/L (11-32) Albumin 3.0 GM/DL (3.4-5.0) Ethyl Alcohol Level 540 MG/DL (0-5) White Blood Count 13.1 TH/MM3 (4.0-11.0) Red Blood Count 4.18 MIL/MM3 (4.50-5.90) Hematocrit 38.4 % (39.0-51.0) Neutrophils (%) (Auto) 81.3 % (16.0-70.0) Neutrophils # (Auto) 10.7 TH/MM3 (1.8-7.7) Chloride Level 113 MEQ/L 108 MEQ/L (98-107) (98-107) Protein Corrected Calcium 8.0 MG/DL (8.5-10.1) Total Protein 5.4 GM/DL (6.4-8.2) Test 12/18/16 06:16 Red Blood Count 4.12 MIL/MM3 (4.50-5.90) Hematocrit 37.7 % (39.0-51.0) Neutrophils (%) (Auto) 92.5 % (16.0-70.0) Lymphocytes (%) (Auto) 4.6 % (9.0-44.0) Neutrophils # (Auto) 9.5 TH/MM3 (1.8-7.7) Lymphocytes # (Auto) 0.5 TH/MM3 (1.0-4.8) Blood Urea Nitrogen 6 MG/DL (7-18) Random Glucose 241 MG/DL (74-106) Calcium Level 8.2 MG/DL (8.5-10.1) Imaging Last Impressions Head CT 12/16/162214 Signed Impressions: Service Date/Time: Friday, December 16, 2016 22:17 - CONCLUSION: Normal examination. Deniz Pearson MD Chest X-Ray 12/16/162023 Signed Impressions: Service Date/Time: Friday, December 16, 2016 20:27 - CONCLUSION: No acute disease. Deniz Pearson MD PE at Discharge GENERAL: in NAD CARDIOVASCULAR: Regular rate and rhythm without murmurs, gallops, or rubs. RESPIRATORY: CTA B/L No accessory muscle use. GASTROINTESTINAL: Abdomen soft, non-tender, nondistended. MUSCULOSKELETAL: No cyanosis, or edema. BACK: Nontender without obvious deformity. No CVA tenderness. NEURO: AAO 3. No tremors noted. Pt update on day of discharge f/u for respiratory failure patient stated he is doing better. denied any SOB and cough. He is weaned off oxygen and doing well. patient afebrile. denied any pain, N/V. his and brother are at the bedside. Hospital Course Patient brought in due to altered mental status and obvious intoxication. Altered mental status -Due to alcohol intoxication. -Resolved the next day. Lactic acidosis - likely secondary to dehydration/EtOH intoxication -resolved with IVFs.. Respiratory failure with hypoxia -Chest x-ray negative. -May be reactive secondary to aspiration. -was started Solu-Medrol and scheduled DuoNeb's and resolved the next day. -patient treated empirically with zosyn and was d/c on levaquin. Hypokalemia -Replenish as needed. EtOH abuse/intoxication -IV hydration, rally pack -CIWA protocol -Extensive education given. Pt Condition on Discharge: Good Discharge Disposition: Discharge Home Discharge Time: <= 30 minutes Discharge Instructions DIET: Follow Instructions for: As Tolerated, No Restrictions Activities you can perform: Regular-No Restrictions Follow up Referrals: PCP Follow-up - 1 Week New Medications: Albuterol 18 GM Inh (Ventolin Hfa 18 GM Inh) 90 Mcg/Act Aer 2 PUFF INH Q4-6H PRN SHORTNESS OF BREATH #1 Ref 0 INHALER Levofloxacin (Levaquin) 750 Mg Tab 750 MG PO DAILY Infection #6 Ref 0 TAB Prednisone (Prednisone) 50 Mg Tab 50 MG PO DAILY wheezing #4 Ref 0 TAB Calcium Carbonate (Antacid) (Calcium Carbonate (Antacid)) 500 Mg Chew 500 MG CHEW TID low calcium #21 Ref 0 Cassidy Purdy MD Dec 18, 2016 12:06
--- NOTE | 2016-12-18 12:06 | HHI.DCPOC ---
Discharge Care Plan Diagnosis: (1) Alcohol intoxication (2) Hypoxia Goals to Promote Your Health * To prevent worsening of your condition and complications * To maintain your health at the optimal level Directions to Meet Your Goals Take your medications as prescribed Follow your dietary instruction Follow activity as directed Keep your appointments as scheduled Take your immunizations and boosters as scheduled If your symptoms worsen call your PCP, if no PCP go to Urgent Care Center or Emergency Room Smoking is Dangerous to Your Health. Avoid second hand smoke Call the 24-hour hour crisis hotline for domestic abuse at Cassidy Guerra MD Dec 18, 2016 12:06
== END 2016-12-18 13:30 | disposition home or self-care (01) | DRG 177 ==
LOC: NEPE 20:16 → EDBD 22:27 → NEDA 22:27 → MERGE 22:27 → N04B 12-17 00:17
PROVIDERS: ADMIT Family Medicine; ATTEND Family Medicine
DX: J69.0 Pneumonitis due to inhalation of food and vomit (principal); J96.91 Respiratory failure, unspecified with hypoxia; E87.2 Acidosis; T17.918A Gastric contents in respiratory tract, part unspecified causing other injury, initial encounter; E86.0 Dehydration; I48.92 Unspecified atrial flutter; F10.129 Alcohol abuse with intoxication, unspecified; E87.6 Hypokalemia; F17.210 Nicotine dependence, cigarettes, uncomplicated; Y90.8 Blood alcohol level of 240 mg/100 ml or more; Z88.7 Allergy status to serum and vaccine
CPT/HCPCS: 70450; 71010; 80048; 80053; 80307; 81001; 82140; 82550; 82948; 83605; 83735; 84155; 85025; 85610; 85730; 87040; 93005; 94640; 94664; 96361; 96365; J2060; J2543; J2930; J3370; J3411; J3475; J3480; J7030; J7040; J7050